=== PATIENT | male | born 1990 | race Asian ===

== ENCOUNTER 2018-08-05 11:40 | Day surgery (SDC) | payer OTHER ==
[~2018-08-05 11:40] MED LIST: BUPIVACAINE 0.25% PF 30 ML VIAL ONE; EPINEPHrine 1 MG/ML AMP ONE
[2018-08-05] MEDS ORDERED: LACTATED RINGERS 1,000 ML IV ONE ×2 (11:48→16:26)
[2018-08-05] MEDS ORDERED: ceFAZolin 2 GM/50 ML 2 GM/50 ML BAG IV ONE (11:52)
--- NOTE | 2018-08-05 12:38 | ANESTHESIA ---
Pre-Anesthesia VS, & Labs - Diagnosis tibial spine fracture - Procedure orif of right tibial spine Vital Signs: Temp Pulse Resp BP Pulse Ox 36.7 C 98 16 149/83 H 99 08/05/18 11:48 08/05/18 11:48 08/05/18 11:48 08/05/18 11:48 08/05/18 11:48 Height 5 ft 9 in Weight (kg) 72.57 kg - NPO >8 hours Home Medications and Allergies Home Medications: Ambulatory Orders No Known Home Medications 08/01/18 No Known Home Medications 08/01/18 Allergies/Adverse Reactions: Allergies Allergy/AdvReac Type Severity Reaction Status Date / Time No Known Drug Allergies Allergy Verified 08/01/18 09:59 Anes History & Medical History - Anesthetic History Anesthesia Complications: reports: Post-Operative Nausea/Vomiting Family history of Anesthesia Complications: Denies Family history of Malignant Hyperthermia: Denies - Medical History Cardiovascular: reports: None Pulmonary: reports: None Gastrointestinal: reports: None Urinary: reports: None Musculoskeletal: reports: Other Endocrine/Autoimmune: reports: None Skin: reports: None Exam General: Alert, Oriented x3, Cooperative, No acute distress Dental: Other (caps) Mouth Openin Fingerbreadth Neck Mobility: Normal Mallampati classification: I Thyromental Distance: greater than 6 cm Respiratory: Lungs clear, Normal breath sounds, No respiratory distress, No accessory muscle use Cardiovascular: Regular rate, Normal S1, Normal S2, No murmurs Mental/Cognitive Status: Alert/Oriented X3, Normal for patient Cognitive Status: Within normal limits Plan Anesthesia Type: General Consent for Procedure(s) Verified and Reviewed: No Code Status: Attempt Resuscitation ASA classification: 1-Healthy patient Is this case an emergency?: No
[2018-08-05] MEDS ORDERED: PROPOFOL 200 MG/20 ML VIAL IVP ONE (15:43)
[2018-08-05] MEDS ORDERED: ONDANSETRON 4 MG/2 ML VIAL IVP ONE (15:43)
[2018-08-05] MEDS ORDERED: HYDROmorphone 1 MG/ML CARPUJECT IVP ONE (15:43)
[2018-08-05] MEDS ORDERED: fentaNYL 100 MCG/2 ML VIAL IVP ONE (15:43)
[2018-08-05] MEDS ORDERED: LIDOCAINE-MPF 2% 5 ML VIAL IM ONE (15:43)
[2018-08-05] MEDS ORDERED: KETOROLAC 30 MG/ML VIAL IVP ONE (15:43)
[2018-08-05] MEDS ORDERED: DEXAMETHASONE 4 MG/ML VIAL IVP ONE (15:43)
[2018-08-05] MEDS ORDERED: BUPIVACAINE 0.25% PF 30 ML VIAL SUBQ ONE (16:36)
[2018-08-05] MEDS ORDERED: oxyCODONE 5 MG TABLET PO PRN (16:52)
[2018-08-05] MEDS ORDERED: ONDANSETRON 4 MG/2 ML VIAL IVP PRN (16:52)
--- NOTE | 2018-08-05 17:06 | OPERATIVE REPORT ---
Operative Report - General Procedure Date: 08/05/18 Planned Procedure: Right tibial spine arthroscopic reduction and internal fixation Pre-Op Diagnosis: Right tibial spine fracture Procedure Performed: Right tibial spine arthroscopic reduction and internal fixation Post Op Diagnosis: Same - Procedure Note Primary Surgeon: Reji Centeno Secondary Surgeon: Gigi Walter Estimated Blood Loss (mL): 10 Complications: None - Other Other Information/Narrative: Indication For Surgery: 27-year-old male sustained a right knee injury while skiing last week he was diagnosed with a right tibial spine fracture that was displaced. He was indicated for surgery to prevent late instability of the ACL.. The risks, benefits, and alternatives were discussed. Risks include pain, bleeding, infection, damage to nearby structures and cartilage, lack of symptom relief, recurrent instability, need for further surgery, DVT, PE, stroke, and . Written consent was obtained. Examination Under Anesthesia: Moderate sized effusion. Stable dial at 30 & 90 degrees. Stable to varus and valgus stressing at 0 & 30 degrees. 2b Roly. Abnormal Pivot shift. No mechanical sensation Diagnostic Arthroscopy: No loose bodies. Synovium injected. Patella cartilage intact. Trochlear cartilage intact. Medial femoral condyle cartilage intact. Medial tibial plateau cartilage showed the fracture to be involved with the medial plateau. There were no cartilage defects. Medial meniscus intact. ACL was avulsed from the tibia with a large fracture that involved the entire ACL insertion as well as the insertion of the anterior horn of the lateral meniscus. PCL was intact. Lateral femoral condyle cartilage intact. Lateral tibial plateau cartilage intact. Anterior horn lateral meniscus insertion was attached to the bony fragment. It was protected reduced and fixed. Procedure in Detail: The patient was met in the pre-operative hold area on the day of the procedure. The operative extremity was signed and questions were answered. The patient was brought to the operating room and a general anesthetic was administered. Supine position was used and bony prominences were padded. An examination under anesthesia was performed. Standard prepping and draping was performed. A time out confirmed patient identification, laterality, procedure, allergies, antibiotics, and images. An Esmarch was used to exsanguinate the limb and the tourniquet was elevated to 250 mmHg. Total tourniquet time was 146 minutes. A standard diagnostic arthroscopy of the knee was performed through anterolateral and anteromedial portal sites. The anteromedial portal was created under direct visualization after localizing with a spinal needle. The findings can be found above. I then proceeded to use a shaver to debride the anterior fat pad for visualization as well as to understand the fracture. I then used a curette and a sucker shaver to debride all fibrous tissue that was in the fracture fragment. To fully visualize it I placed a PDS around the anterior horn of the medial meniscus and pulled traction on it. I meticulously debrided all hematoma and fibrous tissue from the fracture circumferentially off of the fracture bed as well as the bony fragment. I then expanded the lateral portal and placed a passport. I then made a transfer patellar tendon portal under direct visualization and moved the camera to this position. I then reduced the fragment anatomically and placed a 1.6 K wire. The medial plateau portion of the fracture had a small amount of comminution posteriorly. I then used the scorpion the past 2 fiber tapes through the ACL 1 posterior and 1 anterior. The sutures were passed out of the passport. I then made a 2 cm incision over the medial tibial plateau with a [id number] ACL guide drilled the cannulated drill along the edge of the fracture fragment medially. I took care to not damage the medial femoral condyle. I then crossed the anterior suture and brought the posterior suture directly down through that using a looped wire. I then drilled the lateral tunnel 1 cm lateral to the medial tunnel and entered the joint just anterior to the meniscus along the edge of the fracture fragment. I then passed the other 2 sutures through this. I then pulled on the sutures and found the fracture to compress nicely. The K wire was then removed and the sutures were tied with a reverse half hitches alternating posts and 8 knots. I found that the posterior portion of the fragment compressed nicely and recessed down into the fracture bed. The fracture was found to be stable on probing. The anterior portion of the fracture fragment had elevated approximately 1 mm. Backup fixation was performed with a swivel lock on the medial tibia. Final images were taken and all arthroscopic fluid and instruments were removed from the knee. The incisions were closed with 2-0 vicryl and buried monocryl sutures. Steri strips were applied. 20cc of 0.25% Marcaine without epinephrine was injected near the portal sites. A sterile dressing and compression stocking was placed. The patient was awakened and transferred to recovery in stable condition.
[2018-08-05] MEDS ORDERED: ONDANSETRON 4 MG/2 ML VIAL ONE (17:24)
[2018-08-05] MEDS ORDERED: fentaNYL 100 MCG/2 ML VIAL ONE (17:31)
[2018-08-05 18:25] VITALS: BP 137/69
== END 2018-08-05 19:45 | disposition home or self-care (01) ==
LOC: SDS 11:40 → MS2 18:09 → SDS 19:45
PROVIDERS: ATTEND Orthopaedic Surgery
PROC: 0QH Lower Bones, Insertion (ICD-10-PCS; principal; 2018-08-05 13:00)
DX: S82.111A Displaced fracture of right tibial spine, initial encounter for closed fracture (principal)
CPT/HCPCS: 29851; C1713; J0690; J1170; J7120